=== PATIENT | female | born 1950 | race Caucasian/White ===

== ENCOUNTER 2017-05-16 20:33 | Emergency (ER) | payer MEDICARE ==
[~2017-05-16] VITALS: Ht 160 cm; Wt 62.0 kg
[2017-05-16 20:37] VITALS: Ht 160 cm; Wt 62.0 kg
[2017-05-16] MEDS ORDERED: CHOL100062 PO (22:17)
[2017-05-16] MEDS ORDERED: MULTI PO (22:17)
[2017-05-16 22:18] LABS: ADD SCAN DIFF NO
[2017-05-16 22:19] LABS: BASOPHILS % 0.3 % (0.0-2.0); EOSINOPHILS # 0.2 10^3/ul (0.0-0.5); EOSINOPHILS % 1.4 % (0.0-7.0); HEMATOCRIT 44.4 % (37.0-47.0); HEMOGLOBIN 14.6 g/dl (12.0-16.0); LYMPHOCYTES # 3.1 10^3/ul (0.8-2.9); LYMPHOCYTES % 26.5 % (15.0-51.0); MEAN CORPUSCULAR HGB CONC 32.9 g/dl (32.0-37.0); MEAN CORPUSCULAR VOLUME 88.1 fl (82.0-101.0); MEAN PLATELET VOLUME 10.5 fl (7.4-10.4); MONOCYTE # 0.9 10^3/ul (0.3-0.9); MONOCYTES % 7.4 % (0.0-11.0); NEUTROPHIL # 7.5 10^3/ul (1.6-7.5); NEUTROPHILS % 64.2 % (39.0-77.0); PLATELET COUNT 357 10^3/UL (140-415); RED BLOOD COUNT 5.04 10^6/ul (4.20-5.40); WHITE BLOOD COUNT 11.6 10^3/ul (4.8-10.8)
--- NOTE | 2017-05-16 22:25 | RADRPT ---
PROCEDURE: CHEST - 1 VIEW CLINICAL INDICATION: 66-year-old female with chest pain. TECHNIQUE: A single frontal AP upright portable view of the chest was performed. The images were reviewed on a PACS workstation. COMPARISON: None. FINDINGS: The cardiomediastinal silhouette has a normal appearance. There is no evidence for an infiltrate. There is no evidence for congestive heart failure. There is no evidence for pneumothorax. The osseou s structures are intact. IMPRESSION: No evidence for active cardiopulmonary disease. .Donaldo Gil MD, MD Date Time Electronically viewed and signed by .Donaldo Gil MD, on 05/16/2017 22:25 .M/
[2017-05-16 22:43] LABS: ALANINE AMINOTRANSFERASE 37 IU/L (13-69); ALBUMIN 5.2 g/dl (3.3-4.9); ALBUMIN/GLOBULIN RATIO 1.33; ALKALINE PHOSPHATASE 94 IU/L (42-121); ANION GAP 15 (8-16); ASPARTATE AMINO TRANSFERASE 30 IU/L (15-46); BILIRUBIN,INDIRECT 0.7 mg/dl (0-1.1); BILIRUBIN,TOTAL 0.7 mg/dl (0.2-1.3); BLOOD UREA NITROGEN 12 mg/dl (7-20); CALCIUM 9.7 mg/dl (8.4-10.2); CARBON DIOXIDE 29 mmol/L (21-31); CHLORIDE 103 mmol/L (97-110); CREATININE 0.82 mg/dl (0.44-1.00); GLUCOSE 97 mg/dl (70-220); POTASSIUM 3.9 mmol/L (3.5-5.1); SODIUM 143 mmol/L (135-144); TOTAL PROTEIN 9.1 g/dl (6.1-8.1)
[2017-05-16 22:55] LABS: B-TYPE NATRIURETIC PEPTIDE 86 PG/ML (0-125); TROPONIN-I < 0.012 ng/ml (0.00-0.12)
[2017-05-16 23:36] LABS: INR 0.95; PROTIME 12.7 Sec (12.2-14.2)
[2017-05-16 23:37] LABS: PARTIAL THROMBOPLASTIN TIME 30.8 Sec (25.0-35.0)
[2017-05-16 23:45] VITALS: BP 135/84; PULSE 81; RESP 18
[2017-05-16] MEDS ORDERED: IBUP-1542 PO (23:59)
--- NOTE | 2017-05-17 00:09 | ERD ---
ER Documentation Chief Complaint Date/Time DATE: 05/17/17 TIME: 00:08 Chief Complaint squeezing like chest pain x 2 days w/ sob HPI This is 66-year-old squeezing-like chest pain for 2 days with no shortness of breath. She said is reproducible to the touch. She said she noticed it after she lifted a heavy box. Denies any fevers or chills denies any nausea vomiting denies any palpitations or shortness of breath ROS All systems reviewed and are negative except as per history of present illness. Medications Home Meds Active Scripts Ibuprofen* (Motrin*) 600 Mg Tab, 600 MG PO Q6, #30 TAB Prov:SILVIA CASON 05/16/17 Reported Medications Multivitamins* (Theragran*) 1 Tab Tab, 1 TAB PO DAILY, TAB 05/16/17 Cholecalciferol* (Vitamin D3*) 1,000 Unit Tablet, 4000 UNIT PO DAILY, TAB 05/16/17 Allergies Allergies: Coded Allergies: No Known Allergy (Unverified , 05/16/17) PMhx/Soc Medical and Surgical Hx: pt denies Medical Hx, pt denies Surgical Hx History of Surgery: No Anesthesia Reaction: No Hx Neurological Disorder: No Hx Respiratory Disorders: No Hx Cardiac Disorders: No Hx Psychiatric Problems: No Hx Miscellaneous Medical Probl: No Hx Alcohol Use: No Hx Substance Use: No Hx Tobacco Use: No Smoking Status: Never smoker Physical Exam Vitals Vital Signs Date Time Temp Pulse Resp B/P Pulse Ox O2 Delivery O2 Flow Rate FiO2 05/16/17 23:45 81 18 135/84 100 Room Air 05/16/17 21:40 80 18 136/76 98 Room Air 05/16/17 20:37 97.4 103 20 149/67 97 Physical Exam Const: [] Head: Atraumatic Eyes: Normal Conjunctiva ENT: Normal External Ears, Nose and Mouth. Neck: Full range of motion..~ No meningismus. Resp: Clear to auscultation bilaterally Cardio: Regular rate and rhythm, no murmurs Abd: Soft, non tender, non distended. Normal bowel sounds Skin: No petechiae or rashes Back: No midline or flank tenderness Ext: No cyanosis, or edema Neur: Awake and alert Psych: Normal Mood and Affect Result Diagram: 6/27/17 2210 6/27/17 2210 Results 24 hrs Laboratory Tests Test 05/16/17 22:10 05/16/17 23:13 White Blood Count 11.610^3/ul Red Blood Count 5.0410^6/ul Hemoglobin 14.6g/dl Hematocrit 44.4% Mean Corpuscular Volume 88.1fl Mean Corpuscular Hemoglobin 29.0pg Mean Corpuscular Hemoglobin Concent 32.9g/dl Red Cell Distribution Width 14.0% Platelet Count 98661^3/UL Mean Platelet Volume 10.5fl Neutrophils % 64.2% Lymphocytes % 26.5% Monocytes % 7.4% Eosinophils % 1.4% Basophils % 0.3% Nucleated Red Blood Cells % 0.0/100WBC Neutrophils # 7.510^3/ul Lymphocytes # 3.110^3/ul Monocytes # 0.910^3/ul Eosinophils # 0.210^3/ul Basophils # 0.010^3/ul Nucleated Red Blood Cells # 0.010^3/ul Sodium Level 143mmol/L Potassium Level 3.9mmol/L Chloride Level 103mmol/L Carbon Dioxide Level 29mmol/L Anion Gap 15 Blood Urea Nitrogen 12mg/dl Creatinine 0.82mg/dl Glucose Level 97mg/dl Calcium Level 9.7mg/dl Total Bilirubin 0.7mg/dl Direct Bilirubin 0.00mg/dl Indirect Bilirubin 0.7mg/dl Aspartate Amino Transf (AST/SGOT) 30IU/L Alanine Aminotransferase (ALT/SGPT) 37IU/L Alkaline Phosphatase 94IU/L Troponin I < 0.012ng/ml B-Type Natriuretic Peptide 86PG/ML Total Protein 9.1g/dl Albumin 5.2g/dl Globulin 3.90g/dl Albumin/Globulin Ratio 1.33 Prothrombin Time 12.7Sec Prothrombin Time Ratio 1.0 INR International Normalized Ratio 0.95 Activated Partial Thromboplast Time 30.8Sec Procedures/MDM EKG: Rate/Rhythm: [Normal Sinus Rhythm] QRS, ST, T-waves: [No changes consistent w/ acute ischemia] Impression: [No evidence of ischemia or arrhythmia] Chest X-ray 1V Interpreted by me: Soft Tissue: No acute abnormalities Bones: No acute abnormalities Mediastinum/Cardiac Silhouette/Lungs: [No acute abnormalities] Patient's thoracic symptoms have stabilized while in the department and are stable for outpatient follow up. Exam and work up not consistent w/ ischemia, arrhythmia, PE or dissection. Departure Diagnosis: Primary Impression: Chest pain Chest pain type: unspecified Qualified Code: R07.9 - Chest pain, unspecified type Condition: Stable Patient Instructions: Chest Wall Strain SILVIA CASON May 17, 2017 00:09
== END 2017-05-17 00:10 | disposition home or self-care (01) ==
LOC: E/R 20:33
DX: R07.9 Chest pain, unspecified (principal); R06.02 Shortness of breath
CPT/HCPCS: 36415; 71010; 80053; 83880; 84484; 85025; 85610; 85730; 93005